=== PATIENT | female | born 1975 | race Caucasian/White ===

== ENCOUNTER → 2016-12-10 | Outpatient (CLI) | payer OTHER | LOC: KOH-I 09:31 | DX: R59.0 Localized enlarged lymph nodes (principal) | CPT/HCPCS: 70491; Q9965 ==

== ENCOUNTER → 2021-04-22 | Outpatient (CLI) | payer OTHER ==
[2021-04-22 13:09] LABS: HEMOGLOBIN 14.5 gm/dl (12.3-15.3); RED BLOOD COUNT 4.57 M/UL (4.00-5.10); WHITE BLOOD COUNT 4.7 K/UL (4.5-11.0)
[2021-04-22 13:46] LABS: BUN/CREATININE RATIO 17 (0-10)
[2021-04-23 08:20] LABS: VITAMIN D, 25-HYDROXY 28.8 ng/mL (30.0-100.0)
[2021-04-23 11:27] LABS: RHEUMATOID ARTHRITIS FACTOR <10.0 IU/mL (0.0-13.9)
== END ==
LOC: LAB 12:23
PROVIDERS: Nurse Practitioner Family
DX: M79.10 Myalgia, unspecified site (principal); D89.9 Disorder involving the immune mechanism, unspecified; M25.50 Pain in unspecified joint; R76.8 Other specified abnormal immunological findings in serum; E55.9 Vitamin D deficiency, unspecified
CPT/HCPCS: 36415; 80053; 82550; 82728; 83520; 84439; 84443; 85025; 85652; 86140; 86200; 86431